=== PATIENT | female | born 2005 | race Caucasian/White ===

== ENCOUNTER 2024-03-02 07:37 | Emergency (ER) | payer MEDICAID ==
[~2024-03-02] VITALS: Ht 165.1 cm; Wt 61.5 kg
[2024-03-02 07:41] VITALS: TEMP 97.8
[2024-03-02] MEDS: diphenhydrAMINE 50 mg/ml inj IM ONE (08:26)
[2024-03-02] MEDS: predniSONE 20 mg tablet PO ONE (08:26)
[2024-03-02] MEDS ORDERED: METH4TAB81 PO (08:37)
[2024-03-02 09:26] VITALS: BP 148/58; PULSE 85; RESP 16; O2SAT 98
== END 2024-03-02 09:34 | disposition home or self-care (01) ==
LOC: ER 07:38
DX: T78.40XA Allergy, unspecified, initial encounter (principal); H01.8 Other specified inflammations of eyelid; R60.9 Edema, unspecified; X58.XXXA Exposure to other specified factors, initial encounter
CPT/HCPCS: 96372; 99283; J1200; J7512

== ENCOUNTER 2024-03-25 02:20 | Emergency (ER) | payer MEDICAID ==
[~2024-03-25] VITALS: Ht 165.1 cm; Wt 56.2 kg
[~2024-03-25 02:20] MED LIST: METH4TAB81 PO
[2024-03-25 03:50] VITALS: TEMP 98
[2024-03-25] MEDS: ibuprofen tablet 400 MG TABLET PO ONE (05:00)
[2024-03-25] MEDS: acetaminophen 325mg tablet PO ONE (05:00)
[2024-03-25 05:03] VITALS: BP 106/78; PULSE 86; RESP 16; O2SAT 98
== END 2024-03-25 06:12 | disposition home or self-care (01) ==
LOC: ER 02:21
DX: M79.671 Pain in right foot (principal); M79.672 Pain in left foot; Z79.899 Other long term (current) drug therapy
CPT/HCPCS: 99283

== ENCOUNTER 2024-03-28 09:55 | Emergency (ER) | payer MEDICAID ==
[~2024-03-28] VITALS: Ht 165.1 cm; Wt 54.5 kg
[2024-03-28 10:00] VITALS: BP 133/87; PULSE 62; TEMP 98.8; O2SAT 99
[2024-03-28] MEDS: LIDOcaine 1% W/epiNEPHrine 1:100,000 20ml vial IJ ONE (10:05)
[2024-03-28] MEDS: TETanus/Pertussis (Acell)/Diphther VAC/PF (Tdap-Adult) 0.5ml syringe IMVAC ONE (10:05)
[2024-03-28] MEDS: CefTRIAXone 1000mg IM Kit (w/lidocaine diluent) IM ONE (11:24)
[2024-03-28] MEDS: sulfamethoxazole/trimethoprim DS (800/160mg) tablet PO ONE (11:24)
[2024-03-28] MEDS ORDERED: NAPR-56 PO (11:31)
[2024-03-28] MEDS ORDERED: SULF1TAB49 PO (11:31)
[2024-03-28 11:59] VITALS: RESP 18
== END 2024-03-28 12:01 | disposition home or self-care (01) ==
LOC: ER 09:56
DX: L02.612 Cutaneous abscess of left foot (principal)
CPT/HCPCS: 10060; 73620; 90471; 90715; 96372; 99284; J0696; A6449

== ENCOUNTER 2024-06-25 16:58 | Emergency (ER) | payer MEDICAID ==
[~2024-06-25] VITALS: Ht 170.2 cm; Wt 54.5 kg
[2024-06-25 17:23] VITALS: BP 144/81; PULSE 120; RESP 18; TEMP 98.5; O2SAT 97
== END 2024-06-25 19:48 | disposition home or self-care (01) ==
LOC: ER 16:59
DX: F41.9 Anxiety disorder, unspecified (principal); F12.10 Cannabis abuse, uncomplicated; F25.9 Schizoaffective disorder, unspecified; Z79.52 Long term (current) use of systemic steroids
CPT/HCPCS: 99283

== ENCOUNTER 2024-10-18 15:13 | Emergency (ER) | payer MEDICAID ==
[~2024-10-18] VITALS: Ht 165.1 cm; Wt 55.6 kg
[2024-10-18] MEDS: LIDOcaine 1% W/epiNEPHrine 1:100,000 20ml vial SQ ONE (16:39)
[2024-10-18] MEDS ORDERED: SULF1TAB49 PO (17:12)
[2024-10-18 17:36] VITALS: BP 112/68; PULSE 88; RESP 14; TEMP 98.6; O2SAT 98
== END 2024-10-18 17:38 | disposition home or self-care (01) ==
LOC: ER 15:14
DX: L02.212 Cutaneous abscess of back [any part, except buttock and flank] (principal)
CPT/HCPCS: 10060; 99283; A6407; A6258; A6449